=== PATIENT | male | born 2000 | race Caucasian/White ===

== ENCOUNTER 2025-05-06 12:16 | Emergency (ER) | payer MEDICAID ==
[~2025-05-06] VITALS: Ht 172.7 cm; Wt 61.4 kg
[2025-05-06] MEDS ORDERED: PROM473S4 PO (12:34)
[2025-05-06] MEDS ORDERED: ALBU18HF12 IH (12:34)
[2025-05-06 12:45] LABS: GLUCOMETER DEV NAME(LOC) ER.7; GLUCOSE,POINT OF CARE 90 MG/DL (70-110)
[2025-05-06] MEDS: CEPHALEXIN MONOHYDRATE 500 MG CAPSULE PO ONE (13:04)
[2025-05-06] MEDS: BACITRACIN 0.9 GM PACKET OINTMENT TP ONE (13:17)
[2025-05-06 14:52] VITALS: BP 131/74; PULSE 91; RESP 18; TEMP 98.2; O2SAT 99
[2025-05-06] MEDS ORDERED: IBUP-1492 PO (15:05)
[2025-05-06] MEDS ORDERED: CEPH-558 PO (15:05)
== END 2025-05-06 15:20 | disposition home or self-care (01) ==
LOC: EMS 12:19
DX: L03.012 Cellulitis of left finger (principal); E11.9 Type 2 diabetes mellitus without complications; J44.89 Other specified chronic obstructive pulmonary disease; F12.90 Cannabis use, unspecified, uncomplicated; Z79.899 Other long term (current) drug therapy; Z90.89 Acquired absence of other organs; Z88.1 Allergy status to other antibiotic agents; W10.9XXA Fall (on) (from) unspecified stairs and steps, initial encounter; Y93.89 Activity, other specified; Y92.89 Other specified places as the place of occurrence of the external cause; Y99.8 Other external cause status
CPT/HCPCS: 82962; 99283